=== PATIENT | male | born 1990 ===

== ENCOUNTER 2018-05-04 11:38 | Emergency (ER) | payer BC ==
[2018-05-04 12:57] VITALS: BP 126/73
[2018-05-04] MEDS ORDERED: Albuterol 2.5 MG/3 ML NEB.SOL* (0.083%) INH ONE (13:08)
--- NOTE | 2018-05-04 13:09 | UC ---
UC General HPI - HPI Summary HPI Summary: SEEN AT [facility] ON 04/25/18. DX PNEUMONIA AND TX WITH ZPAK. HERE FOR RECHECK. HAS IMPROVED BUT HAS AN ONGOING COUGH. NO CP, SOB OR ASTHMA. - History of Current Complaint Chief Complaint: UCRespiratory Stated Complaint: COUGH (DIAG W/PNEUMONIA @ [facility]) Time Seen by Provider: 05/04/18 13:02 Hx Obtained From: Patient Pain Intensity: 0 Associated Signs & Symptoms: Negative: Fever - Allergy/Home Medications Allergies/Adverse Reactions: Allergies Allergy/AdvReac Type Severity Reaction Status Date / Time No Known Allergies Allergy Verified 05/04/18 12:41 Home Medications: Home Medications Benzonatate CAP* [Tessalon 100 MG CAP*] 100 mg PO TID PRN 05/04/18 [History Confirmed 05/04/18] Ibuprofen TAB* [Motrin TAB* 600 MG] 600 mg PO Q6H PRN 05/04/18 [History Confirmed 05/04/18] PMH/Surg Hx/FS Hx/Imm Hx Respiratory History: Pneumonia - Surgical History Surgical History: None - Social History Occupation: Employed Full-time Alcohol Use: None Substance Use Type: None Smoking Status (MU): Never Smoked Tobacco Review of Systems All Other Systems Reviewed And Are Negative: Yes Constitutional: Positive: Negative Skin: Positive: Negative Eyes: Positive: Negative ENT: Positive: Negative Respiratory: Positive: Cough Cardiovascular: Positive: Negative Gastrointestinal: Positive: Negative Genitourinary: Positive: Negative Motor: Positive: Negative Neurovascular: Positive: Negative Musculoskeletal: Positive: Negative Neurological: Positive: Negative Psychological: Positive: Negative Physical Exam Triage Information Reviewed: Yes Appearance: No Pain Distress Vital Signs: Initial Vital Signs Temp 97.6 F 05/04/18 12:46 Pulse 52 05/04/18 12:46 Resp 18 05/04/18 12:46 BP 126/73 05/04/18 12:46 Pulse Ox 100 05/04/18 12:46 Vital Signs Reviewed: Yes Eyes: Positive: Conjunctiva Clear ENT: Positive: Pharynx normal, TMs normal. Negative: Nasal congestion, Nasal drainage Neck: Positive: Supple, Nontender, No Lymphadenopathy Respiratory: Positive: No respiratory distress, Decreased breath sounds, Other: - NPC Cardiovascular: Positive: RRR, No Murmur Abdomen Description: Positive: Nontender, No Organomegaly, Soft Bowel Sounds: Positive: Present Musculoskeletal: Positive: ROM Intact Neurological: Positive: Alert Psychological: Positive: Age Appropriate Behavior Skin Exam: Normal Diagnostics - Radiology No standard instances Radiology Interpretation Completed By: Radiologist - MPRESSION: #. Elevated lung volumes may reflect obstructive lung disease or simply exuberant inspiratory effort for examination. #. No evidence for pneumonia. Re-Evaluation - Re-Evaluation First Eval Re-Evaluation Time: 13:47 Change: Improved - better aeration. pt feels breathing is easier. Course/Dx - Differential Dx - Multi-Symptom Differential Diagnoses: Other - no infiltrate on cxr. - Diagnoses Provider Diagnosis: Cough in adult Discharge - Sign-Out/Discharge Documenting (check all that apply): Patient Departure All imaging exams completed and their final reports reviewed: Yes - Discharge Plan Condition: Stable Disposition: HOME Patient Education Materials: Acute Cough (ED) Referrals: BRICE Laughlin [Medical Doctor] - 7 Days - Billing Disposition and Condition Condition: STABLE Disposition: Home
== END 2018-05-04 13:59 | disposition home or self-care (01) ==
LOC: UCCORT 11:38
DX: R05 Cough (principal)
CPT/HCPCS: 71046; 99202; G0463